=== PATIENT | male | born 1955 ===

== ENCOUNTER 2023-09-02 05:56 | Day surgery (SDC) | payer MEDICARE ==
[2023-08-31 11:23] LABS: INR 1.24 (0.85-1.15); PROTHROMBIN TIME 13.2 SEC (9.6-11.6)
[2023-08-31 11:25] LABS: PARTIAL THROMBOPLASTIN TIME 29.1 SEC (26.3-35.5)
[2023-08-31 11:34] LABS: CREATININE 0.8 mg/dL (0.5-1.3); POTASSIUM 4.3 mmol/L (3.5-5.1)
[2023-08-31 11:35] VITALS: BP 104/59; PULSE 52; RESP 16
[2023-08-31 11:42] LABS: BASOPHILS # (AUTO) 0.09 K/uL (0.00-0.20); BASOPHILS % (AUTO) 1.4 % (0.0-5.0); EOSINOPHILS % (AUTO) 6.1 % (0.0-8.0); HEMATOCRIT 37.1 % (42-54); IMMATURE GRANULOCYTE ABSOLUTE 0.01 K/uL (0-1); LYMPHOCYTES % (AUTO) 30.8 % (21.0-51.0); MEAN CORPUSCULAR HEMOGLOBIN 33.3 pg (27.0-33.0); MEAN CORPUSCULAR HGB CONC 32.6 g/dL (32.0-36.0); MEAN CORPUSCULAR VOLUME 102.2 fL (79-99); MONOCYTES # (AUTO) 0.7 K/uL (0.1-1.0); MONOCYTES % (AUTO) 10.8 % (3.0-13.0); NEUTROPHILS # (AUTO) 3.3 K/uL (1.8-7.7); NEUTROPHILS % (AUTO) 50.7 % (40.0-77.0); PLATELET COUNT (AUTO) 161 K/uL (130-400); RED BLOOD CELL COUNT(AUTO) 3.63 MIL/uL (4.50-6.20); RED CELL DISTRIBUTION WIDTH 15.6 % (11.0-15.5); WHITE BLOOD COUNT (AUTO) 6.6 K/uL (4.8-10.8)
[2023-08-31 11:51] LABS: B-TYPE NATRIURETIC PEPTIDE 498 pg/mL (0-100)
[2023-09-02] VITALS (21 sets, daily range): BP systolic 90–148; BP diastolic 50–92; PULSE 46–61; RESP 13–19
[~2023-09-02] VITALS: Ht 180.3 cm; Wt 73.0 kg
[~2023-09-02 05:56] MED LIST: GLIP5TAB15 PO; METO25TA6 PO; NITR0.4T50 SL; RIVA20TA PO; ROSU20TA73 PO; SITA1TAB2 PO; TELM80TA10 PO
[2023-09-02] MEDS: 0.9%NACL 1000ML 1,000 ML IV ONE (06:54)
[2023-09-02] MEDS ORDERED: IOHEXOL 350 MG/ML 100ML INFUS..BTL IV ONE (07:26)
[2023-09-02] MEDS ORDERED: MIDAZOLAM HCL 1 MG/ML 2ML VIAL ONE (07:26)
[2023-09-02] MEDS ORDERED: LIDOCAINE HCL 400MG/20ML VIAL ONE (07:26)
[2023-09-02] MEDS ORDERED: FENTANYL CITRATE PF 50 MCG/1 ML 2ML VIAL ONE (07:26)
[2023-09-02] MEDS ORDERED: VERAPAMIL HCL 2.5 MG/ML VIAL ONE (07:27)
[2023-09-02] MEDS ORDERED: HEPARIN 10,000 UNIT/10ML (1,000 UNIT/ML) VIAL ONE (07:27)
[2023-09-02] MEDS ORDERED: NITROGLYCERIN 50MG VIAL ONE (07:27)
[2023-09-02] MEDS ORDERED: IOHEXOL-350 50ML VIAL IV ONE (08:31)
[2023-09-02] MEDS ORDERED: IOHEXOL-350 75 ML VIAL IV ONE (08:49)
[2023-09-02] MEDS ORDERED: NALOXONE HCL 0.4 MG/1 ML ML ONE (09:19)
[2023-09-02] MEDS ORDERED: FLUMAZENIL 0.1MG/1ML 5ML VIAL IV ONE (09:19)
[2023-09-02] MEDS: LIDOCAINE HCL 2% VISCOUS 15 ML UDCUP PO ONE (09:20)
[2023-09-02] MEDS ORDERED: DEXTROSE 50%-WATER 50 ML DISP.SYRIN IV PRN (09:30)
[2023-09-02] MEDS ORDERED: 0.9%NACL 1000ML 1,000 ML IV SCH (09:30)
[2023-09-02] MEDS ORDERED: GLUCAGON 1MG KIT 1 MG ML IM PRN (09:30)
[2023-09-02] MEDS: MIDAZOLAM HCL 1 MG/ML 2ML VIAL IVP ONE (10:22)
[2023-09-02] MEDS: FENTANYL CITRATE PF 50 MCG/1 ML 2ML VIAL IVP ONE (10:22)
[2023-09-02] MEDS ORDERED: INSULIN HUMULIN R 100 UNIT/ML 3ML SQ SCH (11:30)
== END 2023-09-02 14:30 | disposition home or self-care (01) ==
LOC: DAH 05:56
PROVIDERS: ATTEND Internal Medicine Interventional Cardiology
DX: I25.10 Atherosclerotic heart disease of native coronary artery without angina pectoris (principal); I23.6 Thrombosis of atrium, auricular appendage, and ventricle as current complications following acute myocardial infarction; I10 Essential (primary) hypertension; E78.00 Pure hypercholesterolemia, unspecified; E11.43 Type 2 diabetes mellitus with diabetic autonomic (poly)neuropathy; E11.59 Type 2 diabetes mellitus with other circulatory complications; I08.1 Rheumatic disorders of both mitral and tricuspid valves; Z79.899 Other long term (current) drug therapy
CPT/HCPCS: 80048; 83880; 85025; 85610; 85730; 36415; 71045; 93005; 93458; 92978; 92979; 82948 ×2; 93306; C1769 ×2; C1887 ×2; C1894; A4649; C1753; Q9965 ×2; J3010 ×2; J3490 ×3; J7030; J1644 ×2; J2250 ×2; Q9967 ×3; A4615; A4215; A4657; A7002; A4222; A4221; A4663; A4216; A4606; A4223 ×3; 99152; 99156; 99157; J2310; G0500